=== PATIENT | female | born 1990 | race African-American/Black ===

== ENCOUNTER 2017-06-13 22:46 | Emergency (ER) | payer MEDICAID, OTHER ==
[~2017-06-13] VITALS: Ht 160 cm; Wt 54.4 kg
[~2017-06-13 22:46] MED LIST: KEFLEX500 MG ORAL; NKM
[2017-06-13 23:00] VITALS: BP 122/74
[2017-06-13 23:31] LABS: EOSINOPHILS % (AUTO) 2.1 % (0.0-3.0); HEMATOCRIT 39.1 % (37.0-47.0); HEMOGLOBIN 12.5 G/DL (12.0-16.0); LYMPHOCYTES % (AUTO) 32.1 % (20.0-45.0); MEAN CORPUSCULAR VOLUME 80 FL (80-99); MONOCYTES % (AUTO) 8.1 % (1.0-10.0); NEUTROPHILS % (AUTO) 56.7 % (45.0-75.0); PLATELET COUNT 276 K/UL (150-450); WHITE BLOOD COUNT 9.6 K/UL (4.8-10.8)
[2017-06-13 23:31] LABS: APPEARANCE,URINE CLEAR; BILIRUBIN, URINE NEGATIVE (NEGATIVE); COLOR,URINE PALE YELLOW; GLUCOSE, URINE (UA) NEGATIVE (NEGATIVE); KETONES,URINE NEGATIVE (NEGATIVE); LEUKOCYTE ESTERASE ,URINE NEGATIVE (NEGATIVE); NITRITE,URINE NEGATIVE (NEGATIVE); PH,URINE 6 (4.5-8.0); PROTEIN,URINE NEGATIVE (NEGATIVE); UROBILINOGEN,URINE NORMAL MG/DL (0.0-1.0)
[2017-06-13 23:40] LABS: ANION GAP 6 mmol/L (5-15); BLOOD UREA NITROGEN 13 mg/dL (7-18); CARBON DIOXIDE 29 MMOL/L (21-32); CHLORIDE 104 MMOL/L (98-107); CREATININE 0.7 MG/DL (0.55-1.30); POTASSIUM 4.1 MMOL/L (3.5-5.1); SODIUM 139 MMOL/L (136-145)
[2017-06-13 23:45] LABS: ALANINE AMINOTRANSFERASE 33 U/L (12-78); ALBUMIN 3.9 G/DL (3.4-5.0); ALKALINE PHOSPHATASE 97 U/L (46-116); ASPARTATE AMINO TRANSFERASE 21 U/L (15-37); BILIRUBIN,TOTAL 0.2 MG/DL (0.2-1.0)
[2017-06-14] VITALS: BP 128/77
[2017-06-14] MEDS ORDERED: REGLAN5 MG ORAL (00:06)
[2017-06-14 00:10] VITALS: BP 128/77
--- NOTE | 2017-06-14 04:45 | Emergency Room Report ---
History of Present Illness General Chief Complaint: Abdominal Pain Source: Patient Present Illness HPI Patient presents with complaints of diffuse abdominal pain and headache Symptoms started 2 weeks ago Patient denies any neck pain or photophobia Denies any chest pain or shortness of breath denies any vomiting or diarrhea Pain is a cramping type pain patient points essentially through the 4 quadrants of the abdomen She has had a previous otherwise no other surgeries Denies any dysuria frequency Allergies: Coded Allergies: PENICILLINS (Verified Allergy, Unknown, 06/13/17) Patient History Past Medical History: see triage record Pertinent Family History: none Last Menstrual Period: 05/30/2017 Now: No - Unkown : 3 Para: 2 Reviewed Nursing Documentation: PMH: Agreed; PSxH: Agreed Nursing Documentation-PMH History Of Psychiatric Problem: Yes - Anxiety Review of Systems All Other Systems: negative except mentioned in HPI Physical Exam Vital Signs Date Time Temp Pulse Resp B/P (MAP) Pulse Ox O2 Delivery O2 Flow Rate FiO2 06/13/17 22:49 98.3 87 15 120/74 98 Room Air 98.2 Sp02 EP Interpretation: reviewed, normal General Appearance: well appearing, no apparent distress Head: normocephalic, atraumatic Eyes: bilateral eye PERRL, bilateral eye EOMI ENT: hearing grossly normal, normal pharynx, TMs + canals normal, uvula midline Neck: full range of motion, supple, no meningismus, no bony tend Respiratory: lungs clear, normal breath sounds, no rhonchi, no respiratory distress, no retraction, no accessory muscle use Cardiovascular #1: normal peripheral pulses, regular rate, rhythm, no edema, no gallop, no JVD, no murmur Gastrointestinal: normal bowel sounds, non tender, soft, no mass, no organomegaly, non-distended, no guarding, no hernia, no pulsatile mass, no rebound Genitourinary: no CVA tenderness Musculoskeletal: normal inspection Neurologic: oriented x3, responsive, 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, motor strength/ tone normal, sensory intact Psychiatric: mood/affect normal Skin: normal color, no rash, warm/dry, palpation normal Lymphatic: normal inspection, no adenopathy Medical Decision Making Diagnostic Impression: Primary Impression: abdominal pain ER Course With the patient's history and examination, multiple differentials considered, including but not limited to , ectopic , ovarian torsion, gastritis, cholecystitis, pancreatitis, appendicitis Patient's was negative blood work all at baseline levels patient has rested comfortably throughout her stay And patient is stable for close outpatient follow-up Labs Test 06/13/17 23:00 06/13/17 23:15 Urine Color Pale yellow Urine Appearance Clear Urine pH 6 (4.5-8.0) Urine Specific [place] 1.010 (1.005-1.035) Urine Protein Negative (NEGATIVE) Urine Glucose (UA) Negative (NEGATIVE) Urine Ketones Negative (NEGATIVE) Urine Occult Blood 1+ (NEGATIVE) Urine Nitrite Negative (NEGATIVE) Urine Bilirubin Negative (NEGATIVE) Urine Urobilinogen Normal MG/DL (0.0-1.0) Urine Leukocyte Esterase Negative (NEGATIVE) Urine RBC 2-4 /HPF (0 - 2) Urine WBC 0-2 /HPF (0 - 2) Urine Squamous Epithelial Cells Few /LPF (NONE/OCC) Urine Bacteria Few /HPF (NONE) Urine HCG, Qualitative Negative (NEGATIVE) Urine Opiates Screen Negative (NEGATIVE) Urine Barbiturates Screen Negative (NEGATIVE) Phencyclidine (PCP) Screen Negative (NEGATIVE) Urine Amphetamines Screen Negative (NEGATIVE) Urine Benzodiazepines Screen Negative (NEGATIVE) Urine Cocaine Screen Negative (NEGATIVE) Urine Marijuana (THC) Screen Negative (NEGATIVE) White Blood Count 9.6 K/UL (4.8-10.8) Red Blood Count 4.90 M/UL (4.20-5.40) Hemoglobin 12.5 G/DL (12.0-16.0) Hematocrit 39.1 % (37.0-47.0) Mean Corpuscular Volume 80 FL (80-99) Mean Corpuscular Hemoglobin 25.5 PG (27.0-31.0) Mean Corpuscular Hemoglobin Concent 32.0 G/DL (32.0-36.0) Red Cell Distribution Width 14.0 % (11.6-14.8) Platelet Count 276 K/UL (150-450) Mean Platelet Volume 9.4 FL (6.5-10.1) Neutrophils (%) (Auto) 56.7 % (45.0-75.0) Lymphocytes (%) (Auto) 32.1 % (20.0-45.0) Monocytes (%) (Auto) 8.1 % (1.0-10.0) Eosinophils (%) (Auto) 2.1 % (0.0-3.0) Basophils (%) (Auto) 1.0 % (0.0-2.0) Sodium Level 139 MMOL/L (136-145) Potassium Level 4.1 MMOL/L (3.5-5.1) Chloride Level 104 MMOL/L (98-107) Carbon Dioxide Level 29 MMOL/L (21-32) Anion Gap 6 mmol/L (5-15) Blood Urea Nitrogen 13 mg/dL (7-18) Creatinine 0.7 MG/DL (0.55-1.30) Estimat Glomerular Filtration Rate > 60 mL/min (>60) Glucose Level 92 MG/DL (74-106) Calcium Level 9.0 MG/DL (8.5-10.1) Total Bilirubin 0.2 MG/DL (0.2-1.0) Aspartate Amino Transf (AST/SGOT) 21 U/L (15-37) Alanine Aminotransferase (ALT/SGPT) 33 U/L (12-78) Alkaline Phosphatase 97 U/L (46-116) Total Protein 7.7 G/DL (6.4-8.2) Albumin 3.9 G/DL (3.4-5.0) Globulin 3.8 g/dL Albumin/Globulin Ratio 1.0 (1.0-2.7) Last Vital Signs Date Time Temp Pulse Resp B/P (MAP) Pulse Ox O2 Delivery O2 Flow Rate FiO2 06/14/17 00:10 98.3 78 16 128/77 98 Room Air 98.3 Status: improved Disposition: HOME, SELF-CARE Condition: Improved Scripts Metoclopramide Hcl* (REGLAN*) 5 Mg Tablet 5 MG ORAL EVERY 12 HOURS, #10 TAB Prov: Bruce Sosa DO 06/14/17 Referrals: [facility] (PCP) Patient Instructions: Abdominal Pain, Adult, General Headache Without Cause, [id number] Additional Instructions: Patient is provided with the discharge instructions notified to follow up with primary doctor in the next 2-3 days otherwise return to the er with any worsening symptoms. Please note that this report is being documented using DRAGON technology. This can lead to erroneous entry secondary to incorrect interpretation by the dictating instrument. Bruce Sosa DO Jun 14, 2017 04:45
== END 2017-06-14 00:10 | disposition home or self-care (01) ==
LOC: EMR 23:25
DX: R10.9 Unspecified abdominal pain (principal); F41.9 Anxiety disorder, unspecified; Z88.0 Allergy status to penicillin
CPT/HCPCS: 36415; 80053; 80307; 81003; 81025; 85025; 99283

== ENCOUNTER 2017-07-15 23:09 | Emergency (ER) | payer MEDICAID ==
[~2017-07-15] VITALS: Ht 160 cm; Wt 54.4 kg
[~2017-07-15 23:09] MED LIST changes: +REGLAN5 MG ORAL
[2017-07-15 23:38] VITALS: BP 118/75
[2017-07-16 00:16] LABS: BASOPHILS % (AUTO) 1.3 % (0.0-2.0); EOSINOPHILS % (AUTO) 2.6 % (0.0-3.0); HEMATOCRIT 40.6 % (37.0-47.0); HEMOGLOBIN 13.1 G/DL (12.0-16.0); MEAN CORPUSCULAR VOLUME 80 FL (80-99); MONOCYTES % (AUTO) 8.5 % (1.0-10.0); NEUTROPHILS % (AUTO) 50.6 % (45.0-75.0); PLATELET COUNT 293 K/UL (150-450); RED BLOOD COUNT 5.05 M/UL (4.20-5.40); RED CELL DISTRIBUTION WIDTH 14.4 % (11.6-14.8); WHITE BLOOD COUNT 7.7 K/UL (4.8-10.8)
[2017-07-16 00:19] LABS: APPEARANCE,URINE CLEAR; BILIRUBIN, URINE NEGATIVE (NEGATIVE); COLOR,URINE PALE YELLOW; GLUCOSE, URINE (UA) NEGATIVE (NEGATIVE); KETONES,URINE NEGATIVE (NEGATIVE); LEUKOCYTE ESTERASE ,URINE NEGATIVE (NEGATIVE); NITRITE,URINE NEGATIVE (NEGATIVE); PH,URINE 6 (4.5-8.0); PROTEIN,URINE NEGATIVE (NEGATIVE); UROBILINOGEN,URINE NORMAL MG/DL (0.0-1.0)
[2017-07-16 00:30] LABS: ANION GAP 8 mmol/L (5-15); BLOOD UREA NITROGEN 13 mg/dL (7-18); CALCIUM 9.2 MG/DL (8.5-10.1); CARBON DIOXIDE 26 MMOL/L (21-32); CHLORIDE 105 MMOL/L (98-107); CREATININE 0.8 MG/DL (0.55-1.30); POTASSIUM 3.5 MMOL/L (3.5-5.1); SODIUM 139 MMOL/L (136-145)
[2017-07-16 00:34] LABS: INR 0.9 (0.9-1.1)
[2017-07-16 00:35] LABS: ALANINE AMINOTRANSFERASE 53 U/L (12-78); ALBUMIN 4.1 G/DL (3.4-5.0); ALKALINE PHOSPHATASE 94 U/L (46-116); ASPARTATE AMINO TRANSFERASE 25 U/L (15-37); BILIRUBIN,TOTAL 0.3 MG/DL (0.2-1.0)
[2017-07-16 01:45] VITALS: BP 95/65
--- NOTE | 2017-07-16 02:13 | Emergency Room Report ---
History of Present Illness General Chief Complaint: Vaginal Source: Patient Present Illness HPI Patient presents with abdominal pain for 2 days and vaginal bleeding. She states she is and last period was in May. She has used a couple of pads and may have passed some clot material (her report differs from her Mom's) . The pain is 8/10, constant suprapubic and not radiating. No NV or change in bowels. Denies dysuria. She does not know her blood type. No fevers. She was seen 06/13 for abdominal pain and test was negative at that time. She was treated with Reglan. No URI sy, cough, chest pain, dyspnea, rashes. Denies anemia. She has a 15 month old at home and cares for her other children. During her last , she had a placenta previa and had difficulties with bleeding and somewhat premature . She denies prior ectopic or pelvic infection. Allergies: Coded Allergies: LATEX (Verified Allergy, Unknown, 07/15/17) PENICILLINS (Verified Allergy, Unknown, 06/13/17) Patient History Past Medical History: see triage record Social History: Denies: smoking, alcohol use Last Menstrual Period: sometime in may Now: Yes - unknown on how many weeks : 4 Para: 4 Reviewed Nursing Documentation: PMH: Agreed; PSxH: Agreed Physical Exam Vital Signs Date Time Temp Pulse Resp B/P (MAP) Pulse Ox O2 Delivery O2 Flow Rate FiO2 07/15/17 23:30 98.1 87 18 118/75 98 Room Air 98.1 Sp02 EP Interpretation: reviewed, normal General Appearance: well appearing, no apparent distress, GCS 15 Head: normocephalic Eyes: bilateral eye normal inspection, bilateral eye PERRL ENT: moist mucus membranes Neck: supple Respiratory: lungs clear, normal breath sounds Cardiovascular #1: regular rate, rhythm Cardiovascular #2: 2+ radial (R) Gastrointestinal: normal inspection, normal bowel sounds, no mass, non- distended, no guarding, no rebound, tenderness - suprapubic, but abdomen is soft. No referred pain Genitourinary: no CVA tenderness, deferred - she reports bleeding not brisk or with clots at this time Musculoskeletal: back normal, gait/station normal, normal range of motion Neurologic: alert, oriented x3 Skin: normal inspection, warm/dry Medical Decision Making Diagnostic Impression: Primary Impression: Threatened miscarriage in early ER Course Patient presents with suprapubic pain and vaginal bleeding. DDx: ectopic, threatened miscarriage, early , UTI amongst others. Evaluation will be with labs. Patient treated with IV hydration and tylenol. She is in no distress and VS stable. WBC normal, H/H normal. HCG 916. No pyuria and CMP normal. A+ Based on HCG level, evidence of IUP might not be present on ultrasound. Pain is significantly better with tylenol but still present. Discussed observation at home and advised to return if the pain or bleeding increased. Patient stable for outpatient observation and treatment. Laboratory Tests Test 07/15/17 23:59 White Blood Count 7.7 K/UL (4.8-10.8) Red Blood Count 5.05 M/UL (4.20-5.40) Hemoglobin 13.1 G/DL (12.0-16.0) Hematocrit 40.6 % (37.0-47.0) Mean Corpuscular Volume 80 FL (80-99) Mean Corpuscular Hemoglobin 26.0 PG (27.0-31.0) L Mean Corpuscular Hemoglobin Concent 32.3 G/DL (32.0-36.0) Red Cell Distribution Width 14.4 % (11.6-14.8) Platelet Count 293 K/UL (150-450) Mean Platelet Volume 8.7 FL (6.5-10.1) Neutrophils (%) (Auto) 50.6 % (45.0-75.0) Lymphocytes (%) (Auto) 37.0 % (20.0-45.0) Monocytes (%) (Auto) 8.5 % (1.0-10.0) Eosinophils (%) (Auto) 2.6 % (0.0-3.0) Basophils (%) (Auto) 1.3 % (0.0-2.0) Prothrombin Time 9.7 SEC (9.30-11.50) Prothrombin Time INR 0.9 (0.9-1.1) PTT 25 SEC (23-33) Urine Color Pale yellow Urine Appearance Clear Urine pH 6 (4.5-8.0) Urine Specific [place] 1.020 (1.005-1.035) Urine Protein Negative (NEGATIVE) Urine Glucose (UA) Negative (NEGATIVE) Urine Ketones Negative (NEGATIVE) Urine Occult Blood 2+ (NEGATIVE) H Urine Nitrite Negative (NEGATIVE) Urine Bilirubin Negative (NEGATIVE) Urine Urobilinogen Normal MG/DL (0.0-1.0) Urine Leukocyte Esterase Negative (NEGATIVE) Urine RBC 2-4 /HPF (0 - 2) H Urine WBC 0-2 /HPF (0 - 2) Urine Squamous Epithelial Cells Few /LPF (NONE/OCC) Urine Bacteria None /HPF (NONE) Sodium Level 139 MMOL/L (136-145) Potassium Level 3.5 MMOL/L (3.5-5.1) Chloride Level 105 MMOL/L (98-107) Carbon Dioxide Level 26 MMOL/L (21-32) Anion Gap 8 mmol/L (5-15) Blood Urea Nitrogen 13 mg/dL (7-18) Creatinine 0.8 MG/DL (0.55-1.30) Estimate Glomerular Filtration Rate > 60 mL/min (>60) Glucose Level 55 MG/DL (74-106) L Calcium Level 9.2 MG/DL (8.5-10.1) Total Bilirubin 0.3 MG/DL (0.2-1.0) Aspartate Amino Transferase (AST) 25 U/L (15-37) Alanine Aminotransferase (ALT) 53 U/L (12-78) Alkaline Phosphatase 94 U/L (46-116) Total Protein 8.3 G/DL (6.4-8.2) H Albumin 4.1 G/DL (3.4-5.0) Globulin 4.2 g/dL Albumin/Globulin Ratio 1.0 (1.0-2.7) Lipase 210 U/L (73-393) Human Chorionic Gonadotropin, Quant 916 mIU/mL (1-6) H Last Vital Signs Date Time Temp Pulse Resp B/P (MAP) Pulse Ox O2 Delivery O2 Flow Rate FiO2 07/16/17 02:22 98.1 83 16 95/65 98 Room Air 98.1 Status: improved Disposition: HOME, SELF-CARE Condition: Improved Referrals: NOT CHOSEN [facility]/,REFERRING (PCP) Andrea Sparks M.D. July 16, 2017 02:13
[2017-07-16 02:22] VITALS: BP 95/65
== END 2017-07-16 02:23 | disposition home or self-care (01) ==
LOC: EMR 23:46
DX: O20.0 Threatened abortion (principal); Z88.0 Allergy status to penicillin; Z91.040 Latex allergy status
CPT/HCPCS: 36415; 80053; 81003; 83690; 84702; 85025; 85610; 85730; 86850; 86900; 86901; 96360; 96374; 99284

== ENCOUNTER 2019-12-21 18:46 | Emergency (ER) | payer MEDICAID ==
[~2019-12-21] VITALS: Ht 160 cm; Wt 63.5 kg
[2019-12-21 19:00] VITALS: BP 128/87
--- NOTE | 2019-12-21 19:00 | NUR ---
ED Nurse Note:pt walked into ED from home c/o earache for 3 days, pt states it started when washing her hair, and tried ear candleling, then sweet oil, then hydrogen peroxide. Pt states there is "tissue-like white drainage." pt denies fever, chills.
--- NOTE | 2019-12-21 19:23 | Emergency Room Report ---
History of Present Illness General Chief Complaint: Earache Source: Patient Present Illness HPI 29 YO female presents to the ED c/o 12/16 in severity progressive left sided ear pain with swelling, discharge, and muffled hearing. Pt. reports her ear feels "swollen inside." She reports onset after washing her hair and getting water inside of her ear. She denies fevers or chills. She denies dizziness, LEACH, photop hobia, visual changes, nasal congestion, neck pain or stiffness. She reports some tenderness to the tragus. She reports q-tip use and H2O2 use in an attempt to relieve her symptoms. 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 Patient History Past Medical History: see triage record Past Surgical History: none Pertinent Family History: none Now: No Reviewed Nursing Documentation: PMH: Agreed; PSxH: Agreed Nursing Documentation-PMH Past Medical History: No History, Except For Review of Systems All Other Systems: negative except mentioned in HPI Physical Exam Vital Signs Date Time Temp Pulse Resp B/P (MAP) Pulse Ox O2 Delivery O2 Flow Rate FiO2 12/21/19 18:52 99.1 94 20 128/87 (101) 96 Room Air Sp02 EP Interpretation: reviewed, normal General Appearance: no apparent distress, alert, GCS 15, non-toxic Head: normocephalic, atraumatic Eyes: bilateral eye normal inspection, bilateral eye PERRL ENT: hearing grossly normal, normal voice, other - Left ear canal is macerated, some external ear tenderness to palpation, creamy white d/c noted in the Left ear canal. the TM is WNL tragal ttp, no mastoid tenderness or erytythema. Neck: full range of motion, no meningismus, no bony tend Respiratory: lungs clear, normal breath sounds, speaking full sentences Cardiovascular #1: regular rate, rhythm Musculoskeletal: normal range of motion, gait/station normal, non-tender Neurologic: alert, motor strength/tone normal, oriented x3, sensory intact, responsive, speech normal Psychiatric: judgement/insight normal Skin: no rash, normal color Lymphatic: no adenopathy Medical Decision Making PA Attestation Dr. Mancera is my supervising Physician whom patient management has been discussed with. Diagnostic Impression: Primary Impression: Otitis externa Qualified Codes: H60.502 - Unspecified acute noninfective otitis externa, left ear ER Course 29 YO female presents to the ED c/o 12/16 in severity progressive left sided ear pain with swelling, discharge, and muffled hearing. Pt. reports her ear feels "swollen inside." She reports onset after washing her hair and getting water inside of her ear. She denies fevers or chills. She denies dizziness, LEACH, photophobia, visual changes, nasal congestion, neck pain or stiffness. She reports some tenderness to the tragus. She reports q-tip use and H2O2 use in an attempt to relieve her symptoms. Ddx considered but are not limited to OM, OE, mastoiditis, TM perforation, FB, shingles just to name a few. Vital signs: are WNL, pt. is afebrile H&PE are most consistent with otitis Externa ORDERS: none required at this time, the diagnosis is clinical -OTOSCOPY: Left ear canal is macerated, some external ear tenderness to palpation, creamy white d/c noted in the Left ear canal. the TM is WNL. ED INTERVENTIONS: None required at this time. DISCHARGE: At this time pt. is stable for d/c to home. With PO ABX. Will provide printed patient care instructions, and any necessary prescriptions. Care plan and follow up instructions have been discussed with the patient prior to discharge. Last Vital Signs Date Time Temp Pulse Resp B/P (MAP) Pulse Ox O2 Delivery O2 Flow Rate FiO2 12/21/19 19:00 99.1 68 20 128/87 96 Room Air Disposition: HOME, SELF-CARE Condition: Stable Patient Instructions: Otitis Externa, [id number] Additional Instructions: Take medications as directed. Follow up with a Primary Care Provider in 3-5 days, even if your symptoms have resolved. Return sooner to ED if new symptoms occur, or current symptoms become worse. - Please note that this Emergency Department Report was dictated using Sribushot blaster technology software, occasionally this can lead to erroneous entry secondary to interpretation by the dictation equipment. Gerri Crump Dec 21, 2019 19:23
[2019-12-21] MEDS ORDERED: OFLOXACIN5 ML OT (19:24)
[2019-12-21] MEDS ORDERED: TYLENOL EXTRA500 MG ORAL (19:24)
--- NOTE | 2019-12-21 19:29 | NUR ---
ER DISCHARGE NOTE: Patient is cleared to be discharged per ERMD, Pt given paper prescriptions for eardrop ABX and DC paperwork. pt is aox4, on room air, with stable vital signs. pt id band removed. pt is able to ambulate with steady gait. pt took all belongings.
[2019-12-21 19:31] VITALS: BP 125/81
== END 2019-12-21 19:29 | disposition home or self-care (01) ==
LOC: EMR 19:20
DX: H60.502 Unspecified acute noninfective otitis externa, left ear (principal); Z88.0 Allergy status to penicillin; Z91.040 Latex allergy status
CPT/HCPCS: 99282